=== PATIENT | male | born 1955 | race Caucasian/White ===

== ENCOUNTER 2023-03-24 10:01 | Day surgery (SDC) | payer OTHER ==
[2023-03-21 14:42] VITALS: BMI 31.0
[2023-03-24 11:39] VITALS: RESP 18; TEMP 98
[2023-03-24 11:57] VITALS: BP 120/63; PULSE 84
== END 2023-03-24 12:11 | disposition home or self-care (01) ==
LOC: FASU-ENDO 10:01
PROVIDERS: ATTEND Internal Medicine Gastroenterology
PROC: 0DB78ZX Excision of Stomach, Pylorus, Via Natural or Artificial Opening Endoscopic, Diagnostic (ICD-10-PCS; 2023-03-24)
PROC: 0DB28ZX Excision of Middle Esophagus, Via Natural or Artificial Opening Endoscopic, Diagnostic (ICD-10-PCS; principal; 2023-03-24 11:23)
DX: K29.50 Unspecified chronic gastritis without bleeding (principal); K20.90 Esophagitis, unspecified without bleeding
CPT/HCPCS: 88305-TC; 88312-TC; 88342-TC

== ENCOUNTER 2023-03-30 09:24 | Observation (INO) | payer OTHER ==
[2023-03-30] MEDS ORDERED: ACETAMINOPHEN 1000 MG/100 ML BAG IVPB ONE (10:28)
[2023-03-30 10:33] VITALS: BMI 35.2
[2023-03-30 11:00] LABS: BASO % 0.4 % (0-2.0); EOS % 0.8 % (0-4.5); HEMATOCRIT 35.4 % (35.4-49); HEMOGLOBIN 11.5 GM/dL (11.7-16.9); LYMPH % 22.5 % (8-40); MCHC 32.4 g/dl (32.0-35.9); MEAN CELL VOLUME 89.6 fl (80-96); MEAN PLT VOLUME 7.7 fl (7.5-11.1); MONO % 9.9 % (3.8-10.2); NEUT % 66.4 % (42.8-82.8); PLATELET COUNT 340 10^3/uL (134-434); RBC 3.95 M/mm3 (4.00-5.60); RDW 15.4 % (11.9-15.9); WHITE BLOOD COUNT 6.5 K/mm3 (4.0-10.0)
[2023-03-30 11:08] LABS: INR 1.46 (0.83-1.09); PROTHROMBIN TIME (PATIENT) 16.9 SEC (9.7-13.0)
[2023-03-30 11:10] LABS: ACTIVATED PTT 36.3 SECONDS (25.2-36.5)
[2023-03-30 11:34] LABS: POTASSIUM 4.3 mmol/L (3.5-5.1)
[2023-03-30 11:36] LABS: CALCIUM 9.3 mg/dL (8.5-10.1)
[2023-03-30 11:37] LABS: ALBUMIN 3.4 g/dl (3.4-5.0); BLOOD UREA NITROGEN 19.6 mg/dL (7-18); MAGNESIUM 2.1 mg/dL (1.8-2.4)
[2023-03-30 11:40] LABS: CREATININE 0.9 mg/dL (0.55-1.3)
[2023-03-30 11:42] LABS: BILIRUBIN,TOTAL 0.5 mg/dL (0.2-1); TOT PROT 7.2 g/dl (6.4-8.2)
[2023-03-30 11:45] LABS: N-TERMINAL BNP 106.1 pg/ml (5-125)
[2023-03-30] MEDS ORDERED: KETOROLAC TROMETHAMINE 15 MG/ML VIAL IVPUSH ONE (14:25)
[2023-03-30] MEDS ORDERED: KETOROLAC TROMETHAMINE 15 MG/ML VIAL ONE (14:47)
[2023-03-30] MEDS ORDERED: ATORVASTATIN CA 10 MG TABLET (FP) PO SCH (22:00)
[2023-03-30] MEDS ORDERED: SENNOSIDES 8.6MG TABLET (FP) PO SCH (22:00)
[2023-03-31 01:15] VITALS: RESP 18
[2023-03-31] MEDS ORDERED: TAMSULOSIN HCL 0.4 MG CAP PO SCH (08:30)
[2023-03-31 09:41] VITALS: BP 107/61; PULSE 77; TEMP 98.2
[2023-03-31] MEDS ORDERED: POLYETHYLENE GLYCOL (HEALTHYLAX) 3350 17 GM PACKET PO SCH (10:00)
[2023-03-31] MEDS ORDERED: LISINOPRIL 20 MG TABLET PO SCH (10:00)
[2023-03-31] MEDS ORDERED: amLODIPine BESYLATE 10 MG TABLET (FP) PO SCH (10:00)
[2023-03-31] MEDS ORDERED: PANTOPRAZOLE 20 MG TABLET PO SCH (10:00)
[2023-03-31] MEDS ORDERED: IBUPROFEN 400 MG TABLET (FP) PO ONE (10:22)
[2023-03-31] MEDS ORDERED: ACETAMINOPHEN 325 MG TABLET (FP) PO ONE (11:15)
== END 2023-03-31 14:21 ==
LOC: JER 09:24 → JERBED 15:08 → J4W 19:17
PROVIDERS: ADMIT Internal Medicine; ATTEND Internal Medicine
PROC: 3E0333Z Introduction of Anti-inflammatory into Peripheral Vein, Percutaneous Approach (ICD-10-PCS; principal; 2023-03-30)
PROC: 3E033NZ Introduction of Analgesics, Hypnotics, Sedatives into Peripheral Vein, Percutaneous Approach (ICD-10-PCS; 2023-03-30)
DX: R07.89 Other chest pain (principal); M25.512 Pain in left shoulder; I10 Essential (primary) hypertension; K92.2 Gastrointestinal hemorrhage, unspecified; Z86.73 Personal history of transient ischemic attack (TIA), and cerebral infarction without residual deficits; E78.5 Hyperlipidemia, unspecified
CPT/HCPCS: 36415; 71045-TC-FY; 73030-TC-LT-FY; 80053; 80061; 82550; 82553; 83036; 83735; 83880; 84439; 84443; 84484; 85025; 85610; 85730; 86850; 86900; 86901; 93005; 93010; 93306-TC; 96374; 96375; 99285-25; G0378

== ENCOUNTER 2023-06-23 10:21 | Day surgery (SDC) | payer OTHER ==
[2023-06-14 12:09] VITALS: BMI 31.2
[2023-06-23 12:57] VITALS: TEMP 97.8
[2023-06-23 13:28] VITALS: PULSE 75; RESP 18
[2023-06-23 13:56] VITALS: BP 115/68
== END 2023-06-23 13:58 | disposition home or self-care (01) ==
LOC: FASU-ENDO 10:21
PROVIDERS: ATTEND Internal Medicine Gastroenterology
PROC: 0DJD8ZZ Inspection of Lower Intestinal Tract, Via Natural or Artificial Opening Endoscopic (ICD-10-PCS; principal; 2023-06-23 12:34)
DX: K92.1 Melena (principal); R19.5 Other fecal abnormalities; K64.1 Second degree hemorrhoids